=== PATIENT | female | born 1990 | race Caucasian/White ===

== ENCOUNTER 2017-09-21 20:29 | Emergency (ER) | payer OTHER ==
[~2017-09-21] VITALS: Ht 157.5 cm; Wt 46.7 kg
[2017-09-21 20:47] VITALS: Ht 157.5 cm; Wt 46.7 kg
[2017-09-21 21:49] LABS: BASOPHIL % 0.4 % (0-2); PLATELET COUNT 283 x10^3mcL (130-400)
[2017-09-21 21:50] LABS: microscopic required? YES; urine erythrocyte TRACE (NEGATIVE)
[2017-09-21 21:50] LABS: RED CELL DISTRIBUTION WIDTH 19.9 % (11.5-14.5)
[2017-09-22 00:18] VITALS: BP 98/57
== END 2017-09-22 00:18 | disposition home or self-care (01) ==
LOC: ED 20:29
PROVIDERS: Emergency Medicine
DX: O20.0 Threatened abortion (principal)
CPT/HCPCS: 36415